=== PATIENT | male | born 2000 | race Caucasian/White ===

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

== ENCOUNTER 2021-01-04 15:56 | Emergency (ER) | payer MEDICAID, SELFPAY ==
[2021-01-04 16:00] VITALS: BP 155/77; PULSE 68; RESP 18; TEMP 36.8; O2SAT 99
--- NOTE | 2021-01-04 16:00 | DI.RAD_ITS ---
Exam(s) XR HAND RT COMPLETE EXAM: XR HAND RT COMPLETE CLINICAL HISTORY: pain, deformity. TECHNIQUE: 2D digital imaging was performed. COMPARISON: No exams were available for comparison FINDINGS: BONES: There is an acute comminuted fracture at the distal 3rd of the right 5th metacarpal. There is impaction and angulation of the fracture noted. The apex of the fracture is directed posterior. Th e fracture does not involve the joint space. No bony destructive lesion is seen. JOINTS: No dislocation present. SOFT TISSUE: There is soft tissue swelling associated with the 5th metacarpal fracture. IMPRESSION: Acute comminuted angulated fracture of the right 5th metacarpal. DATA REPOSITORY: RADIATION DOSE DELIVERED:
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
[2021-01-04] MEDS: Ibuprofen 800 MG TAB PO (16:18)
--- NOTE | 2021-01-04 16:32 | NUR.NOTE ---
Nursing Note: Pt provided ice upon arrival, assisted provider with splint application.
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
[2021-01-04 16:58] VITALS: PULSE 68; RESP 18; TEMP 36.8; O2SAT 99
== END 2021-01-04 17:00 | disposition home or self-care (01) ==
LOC: ER 16:59
PROVIDERS: Emergency Provider Emergency Medicine; PCP Family Medicine
DX: S62.396A Other fracture of fifth metacarpal bone, right hand, initial encounter for closed fracture (principal); W22.01XA Walked into wall, initial encounter
CPT/HCPCS: 26605; 73130

== ENCOUNTER 2021-01-05 14:27 | Outpatient (CLI) | payer MEDICAID, SELFPAY ==
--- NOTE | 2021-01-05 13:45 | DI.RAD_ITS ---
Exam(s) XR HAND RT COMPLETE EXAM: XR HAND RT COMPLETE CLINICAL HISTORY: right 5th metacarpal fracture. TECHNIQUE: 2D digital imaging was performed. COMPARISON: CR,XR XR HAND RT COMPLETE from 01/04/2021 FINDINGS: The patient is fingers in a splint. BONES: There is persistent volar angulation of the comminuted fracture involving the right 5th metaca rpal. No bony destructive lesion is seen. JOINTS: No dislocation present. SOFT TISSUE: Normal. IMPRESSION: Angulated and comminuted 5th metacarpal fracture. DATA REPOSITORY: RADIATION DOSE DELIVERED:
== END 2021-01-05 14:28 | disposition home or self-care (01) ==
LOC: DIORS 14:27
PROVIDERS: PCP Family Medicine; Referring Provider Family Medicine; Visit Provider Physician Assistant
DX: S62.336A Displaced fracture of neck of fifth metacarpal bone, right hand, initial encounter for closed fracture (principal); X58.XXXA Exposure to other specified factors, initial encounter
CPT/HCPCS: 73130

== ENCOUNTER 2021-01-12 14:14 | Outpatient (CLI) | payer MEDICAID, SELFPAY ==
--- NOTE | 2021-01-12 13:45 | DI.RAD_ITS ---
Exam(s) XR HAND RT COMPLETE EXAM: XR HAND RT COMPLETE 14 13 and 1457 CLINICAL HISTORY: closed boxers fx f/u. TECHNIQUE: 2D digital imaging was performed. COMPARISON: CR XR HAND RT COMPLETE from 01/05/2021 CR XR HAND RT COMPLETE from 01/05/2021 CR XR HAND RT COMPLETE from 01/12/2021 CR XR HAND RT COMPLETE from 01/12/2021 FINDINGS: 1st exam shows removal of the splint. There has been no change in the alignment of the 5th metacarpa l fracture with ventral angulation. The 2nd exam shows placement a splint which partially obscures the bony detail. The ventral angulati on has been corrected. DATA REPOSITORY: RADIATION DOSE DELIVERED:
== END 2021-01-12 14:15 | disposition home or self-care (01) ==
PROVIDERS: PCP Family Medicine; Visit Provider Student in an Organized Health Care Education/Training Program
DX: S62.326D Displaced fracture of shaft of fifth metacarpal bone, right hand, subsequent encounter for fracture with routine healing (principal); X58.XXXD Exposure to other specified factors, subsequent encounter
CPT/HCPCS: 73130

== ENCOUNTER 2021-01-19 09:50 | Outpatient (CLI) | payer MEDICAID, SELFPAY ==
--- NOTE | 2021-01-19 08:30 | DI.RAD_ITS ---
Exam(s) XR HAND RT COMPLETE EXAM: XR HAND RT COMPLETE CLINICAL HISTORY: closed boxer's fx f/u. TECHNIQUE: 2D digital imaging was performed. COMPARISON: CR XR HAND RT COMPLETE from 01/12/2021 FINDINGS: BONES: There does not appear to be any significant change in alignment of the fracture involving the 5th metacarpal. No bony destructive lesion is seen. JOINTS: No dislocation present. SOFT TISSUE: The patient's wrist and hand is in a splint. IMPRESSION: Stable 5th metacarpal fracture. DATA REPOSITORY: RADIATION DOSE DELIVERED:
== END 2021-01-19 09:51 | disposition home or self-care (01) ==
LOC: DIORS 09:51
PROVIDERS: PCP Family Medicine; Referring Provider Family Medicine; Visit Provider Student in an Organized Health Care Education/Training Program
DX: S62.306D Unspecified fracture of fifth metacarpal bone, right hand, subsequent encounter for fracture with routine healing (principal); X58.XXXD Exposure to other specified factors, subsequent encounter
CPT/HCPCS: 73130

== ENCOUNTER 2021-02-02 11:19 | Outpatient (CLI) | payer MEDICAID, SELFPAY ==
--- NOTE | 2021-02-02 08:15 | DI.RAD_ITS ---
Exam(s) XR HAND RT COMPLETE EXAM: XR HAND RT COMPLETE CLINICAL HISTORY: closed boxer's fracture f/u. TECHNIQUE: 2D digital imaging was performed of the right hand. Three images were obtained. AP, late ral and oblique views were obtained. COMPARISON: CR XR HAND RT COMPLETE from 01/19/2021 FINDINGS: BONES: There has been no change in alignment of the fracture involving the right 5th metacarpal. No new fracture or dislocation is present. No bony destructive lesion is seen. JOINTS: No dislocation present. SOFT TISSUE: Normal. IMPRESSION: Stable right 5th metacarpal fracture. DATA REPOSITORY: RADIATION DOSE DELIVERED:
== END 2021-02-02 11:20 | disposition home or self-care (01) ==
LOC: DIORS 11:20
PROVIDERS: PCP Family Medicine; Visit Provider Student in an Organized Health Care Education/Training Program
DX: S62.336D Displaced fracture of neck of fifth metacarpal bone, right hand, subsequent encounter for fracture with routine healing (principal)
CPT/HCPCS: 73130

== ENCOUNTER 2021-03-02 13:13 | Outpatient (CLI) | payer MEDICAID, SELFPAY ==
--- NOTE | 2021-03-02 13:00 | DI.RAD_ITS ---
Exam(s) XR WRIST RT COMPLETE EXAM: XR WRIST RT COMPLETE CLINICAL HISTORY: boxers fx f/u. TECHNIQUE: 2D digital imaging was performed. COMPARISON: No exams were available for comparison FINDINGS: There is no evidence of fracture of the carpal row bones nor dislocation nor significant ulnar varian ce. Bone density is normal. Scaphoid appears unremarkable. There are no osseous lesions. Incidentally noted is a healing fracture site in the distal half of the 5th metacarpal. There is some callus formation at this level. IMPRESSION: No acute wrist fracture evident Healing fracture site seen in the 5th metacarpal. DATA REPOSITORY: RADIATION DOSE DELIVERED:
== END 2021-03-02 13:14 | disposition home or self-care (01) ==
LOC: DIORS 13:13
PROVIDERS: PCP Family Medicine; Referring Provider Family Medicine; Visit Provider Student in an Organized Health Care Education/Training Program
DX: S62.336D Displaced fracture of neck of fifth metacarpal bone, right hand, subsequent encounter for fracture with routine healing (principal)
CPT/HCPCS: 73110

== ENCOUNTER 2021-04-06 08:48 | Outpatient (CLI) | payer MEDICAID, SELFPAY ==
--- NOTE | 2021-04-06 08:00 | DI.RAD_ITS ---
Exam(s) XR HAND RT COMPLETE EXAM: XR HAND RT COMPLETE CLINICAL HISTORY: Right boxer f f/u. TECHNIQUE: 2D digital imaging was performed. COMPARISON: CR XR HAND RT COMPLETE from 02/02/2021 FINDINGS: There has been some healing at the level of the boxer's fracture of the 5th metacarpal. There is elke temitope formation. Fracture line is still faintly visible. No additional fractures identified. Bone density normal. No osseous lesions. IMPRESSION: DATA REPOSITORY: RADIATION DOSE DELIVERED:
== END 2021-04-06 08:49 | disposition home or self-care (01) ==
LOC: DIORS 08:49
PROVIDERS: PCP Family Medicine; Visit Provider Student in an Organized Health Care Education/Training Program
DX: S62.336D Displaced fracture of neck of fifth metacarpal bone, right hand, subsequent encounter for fracture with routine healing (principal)
CPT/HCPCS: 73130